=== PATIENT | female | born 1975 | race Two or more races ===

== ENCOUNTER → 2016-11-20 | Outpatient (CLI) | payer BC | LOC: WI 10:35 | PROVIDERS: ATTEND Internal Medicine | DX: Z12.31 Encounter for screening mammogram for malignant neoplasm of breast (principal); M17.11 Unilateral primary osteoarthritis, right knee; R10.13 Epigastric pain | CPT/HCPCS: 76705; G0202; 77067 ==

== ENCOUNTER → 2016-12-11 | Outpatient (CLI) | payer BC | LOC: OD 12:57 | PROVIDERS: ATTEND Internal Medicine | DX: M17.11 Unilateral primary osteoarthritis, right knee (principal) ==